=== PATIENT | female | born 1950 | race Caucasian/White ===

== ENCOUNTER → 2017-04-17 | Outpatient (CLI) | payer OTHER | END | disposition home or self-care (01) | LOC: RAD 09:41 | PROVIDERS: ATTEND Physician Assistant Medical | DX: S32.10XA Unspecified fracture of sacrum, initial encounter for closed fracture (principal); M25.452 Effusion, left hip; X58.XXXA Exposure to other specified factors, initial encounter; Y93.89 Activity, other specified; Y92.89 Other specified places as the place of occurrence of the external cause; Y99.8 Other external cause status ==

== ENCOUNTER → 2021-04-13 | Outpatient (CLI) | payer OTHER | END | disposition home or self-care (01) | LOC: CFH 08:22 | PROVIDERS: ATTEND Physical Medicine & Rehabilitation | DX: M81.0 Age-related osteoporosis without current pathological fracture (principal) | CPT/HCPCS: 77080 ==

== ENCOUNTER 2021-05-06 08:27 | Outpatient (CLI) | payer OTHER | END 2021-05-06 23:59 | disposition home or self-care (01) | LOC: RAD 08:27 | PROVIDERS: ATTEND Physician Assistant Surgical | DX: K44.9 Diaphragmatic hernia without obstruction or gangrene (principal); R13.19 Other dysphagia; M62.838 Other muscle spasm | CPT/HCPCS: 74220 ==